=== PATIENT | male | born 2000 | race Caucasian/White ===

== ENCOUNTER 2019-10-31 09:16 | Day surgery (SDC) | payer BC ==
[~2019-10-31] VITALS: Ht 182.9 cm; Wt 78.5 kg
[2019-10-31 10:24] VITALS: Ht 182.9 cm; Wt 78.5 kg
--- NOTE | 2019-10-31 14:27 | NUR ---
1410 UP TO BATHROOM VOIDED URINE. BACK TO BEDSIDE. BP 92/56. P-54 02 SAT 97%. IV ELEVATED & INFUSING@ WIDE OPEN RATE. SITTING OF SIDE OF BED. Hugh MCCALL R.N. 1430 BP 96/54. P-61 02 SAT 98%. IV DC'ED WITH CATH INTACT & 300ML LTC DRESSING. Hugh MCCALL R.N. 1445 DRESSED. AWAKE & ALERT. GIVEN DISCHARGE INFORMATION INCLUDING: RX: VERENICE MURDOCK, MED REC, RTC APPT., [facility] D/C INSTRUCTIONS, & DR. SPARKS'S POST TONSILLECTOMY & ADENOIDECTOMY D/C INSTRUCTIONS. VOICED UNDERSTANDING. TO PRIVATE CAR PER WHEELCHAIR. HOME WITH MOTHER. Hugh AGUILAR R.N.
--- NOTE | 2019-11-07 09:15 | OP ---
PATIENT NAME: JAVIER HINES MEDICAL RECORD: [id number] :99 LOCATION:[facility] ADMISSION DATE: SURGEON: VICTORINA KLINE MD DATE OF OPERATION: 10/31/2019 PREOPERATIVE DIAGNOSIS: Chronic pharyngitis. POSTOPERATIVE DIAGNOSIS: Chronic pharyngitis. PROCEDURE: Tonsillectomy and adenoidectomy. SURGEON: Victorina Kline MD ANESTHESIA: General orotracheal. BLOOD LOSS: Less than 5 cc. SPECIMENS: Right and left tonsil. COMPLICATIONS: None. DISPOSITION: Recovery stable. PROCEDURE NOTE: The patient was brought to the operating room and placed in supine position, sedated and intubated by anesthesia. The table was turned 90 degrees. Head drapes applied. He was positioned for tonsillectomy. Using a headlight, a Henrietta-Myles mouth gag was carefully inserted and elevated on a towel on his chest. The palate was examined and palpated. It was normal. A red rubber catheter was placed through the right side of the nose and the pharynx and grasped with tonsil clamp to retract the soft palate. Using a mirror, the nasopharynx was examined. Suction cautery on a setting of 35 was used to ablate and suction the adenoid bed. There was no significant bleeding. Choanae and eustachian orifices were normal bilaterally. The red rubber catheter was let down and removed. The right tonsil was grasped at the superior pole with a straight Allis clamp. Spatula tip cautery on a setting of 9 was used to dissect out the tonsil along its capsule, preserving the anterior and posterior tonsillar pillar. The left tonsil was removed in the same fashion. Then, both sides of the nose were irrigated with saline. The pharynx was suctioned. Tonsillar fossae were agitated. Suction cautery on a setting of 18 was used to control minimal oozing. With the field clean and dry, the Henrietta-Myles mouth gag was let down and removed. He was awakened, extubated, and transported to recovery in good condition. No complications. TRANSINT:[id number] Voice Confirmation ID: [id number] DOCUMENT ID: [id number] OPERATIVE REPORT [id number] JAVIER HINES VICTORINA KLINE MD at 0915 CC: [id number] DICTATION DATE: 10/31/19 1230 CHILDBIRTH EDUCATOR: 10/31/19 2345 [facility] 10/31/19 [id number] [place] [address]
--- NOTE | 2019-11-07 09:15 | HP ---
PATIENT: JAVIER HINES MEDICAL RECORD: [id number] ACCOUNT: [id number] LOCATION:[facility] : 99 ADMISSION DATE: 10/31/19 PCP: JAVIER MAYERS DO HISTORY AND PHYSICAL EXAMINATION HISTORY OF PRESENT ILLNESS: Javier is 19 years old. He has been having significant problems with chronic pharyngitis, being admitted for tonsillectomy and adenoidectomy. PAST MEDICAL HISTORY: Otherwise negative. PAST SURGICAL HISTORY: Femur fracture in 2000. CURRENT MEDICATIONS: None. ALLERGIES: PENICILLIN. PHYSICAL EXAMINATION: GENERAL: Healthy-appearing, normal voice. FACE: Normal, symmetric, no lesions. EYES: Sclerae and conjunctivae are normal. EARS: Canals and TMs are normal. NOSE: No mass, polyps or drainage. ORAL CAVITY AND OROPHARYNX: Large 3+ cryptic tonsils. NECK: Small jugulodigastric adenopathy bilaterally. CHEST: Clear. CARDIOVASCULAR: Regular rate and rhythm, no murmur. EXTREMITIES: Normal. IMPRESSION: Chronic caseous pharyngitis. PLAN: Tonsillectomy and adenoidectomy. TRANSINT:[id number] Voice Confirmation ID: [id number] DOCUMENT ID: [id number] VICTORINA SPARKS MD at 0915 CC: [id number] DICTATION DATE: 10/27/19 151 AIRCRAFT SERVICER: 10/27/19 1531 [facility] 10/31/19 [facility] [address] [place] [address]
== END 2019-10-31 14:45 | disposition hospice, home (50) ==
LOC: D.OPS 09:16 → D.PAN 09:25 → D.OPS 14:45
PROVIDERS: ATTEND Otolaryngology
DX: J31.2 Chronic pharyngitis (principal)